=== PATIENT | female | born 1935 | race Caucasian/White ===

== ENCOUNTER 2017-07-22 14:57 | Emergency (ER) | payer OTHER ==
--- NOTE | 2017-07-22 15:19 | EDPHY ---
H & P Stated Complaint: L foot swelling, pain, redness x 5 days. On keflex Time Seen by Provider: 07/22/17 15:16 HPI/ROS: CHIEF COMPLAINT: Left foot pain HISTORY OF PRESENT ILLNESS: This is an 82-year-old female who presents complaining of left foot pain that has been present for the past 6 days. She reports no trauma. She was seen in her primary care physician's office last Thursday, 5 days ago, and started on Keflex twice daily. She has taken this antibiotic faithfully but had no improvement. She reports pain, redness, and swelling along the medial aspect and the bottom of her left foot. She has had some skin sloughing. There is a similar process taking place on the right foot , and similar medial location; but her right foot is not painful. Of note, she was seen here approximately 2 years ago complaining of pain and redness of the medial aspect of her right foot and was treated with clindamycin at that time. She does not recall that visit. She has had no recent illnesses. She denies cough or cold, chest pain, difficulty breathing, abdominal pain, vomiting, diarrhea, constipation, and dysuria. REVIEW OF SYSTEMS: A ten point review of systems was performed and is negative with the exception of the items mentioned in the HPI. Past medical history: 1. Hypothyroid 2. Hyperlipidemia 3. ? Cardiac arrhythmia--she takes Brilinta and metoprolol, cannot report why Social history: She uses a walker or cane to get about. She lives independently. She drives herself. She does not use tobacco products. General Appearance: Alert. Vital signs reviewed. Blood pressure 160/83. Eyes: Pupils equal and round, no conjunctival injection, no discharge. Anicteric. ENT, Mouth: Mucous membranes are moist, no oropharyngeal erythema or edema. Neck: No lymphadenopathy. Respiratory: Lungs are clear to auscultation; no wheezes, rales, or rhonchi. Cardiovascular: Regular rate and rhythm; no murmur, rub, or gallop. Gastrointestinal: Abdomen is soft and nontender, no masses or organomegaly. Skin: Warm and dry. Extremities: Left foot with pitting edema across the dorsum. There is warmth and erythema of the medial aspect of the left foot extending onto the arch of the foot. There is a 3 cm x 3 cm area where the superficial skin has sloughed off. No purpura, petechiae, both lie, or nodules. Right foot has some erythema and 2 circular areas of skin sloughing (nickel-sized) medially but no swelling, warmth, or tenderness. No splinter hemorrhages. Pulses: 2+ dorsalis pedis pulses bilaterally. Neurological: Alert and oriented. Moving all four extremities easily and equally. Full active 5/5 plantar and dorsiflexion at both ankles. Wiggles toes vigorously and easily. Sensation intact to light touch over both lower extremities. Psychiatric: Normal affect. - Personal History Current Tetanus Diphtheria and Acellular Pertussis (TDAP): Yes Tetanus Vaccine Date: within 10 years - Medical/Surgical History Hx Asthma: No Hx Chronic Respiratory Disease: No Hx Diabetes: No Hx Cardiac Disease: No Hx Renal Disease: No Hx Cirrhosis: No Hx Alcoholism: No Hx HIV/AIDS: No Hx Splenectomy or Spleen Trauma: No Other PMH: EYE SURG, BACK SURG X5, HYPOTHYROID, HIGH CHOL, UTI - Social History Smoking Status: Former smoker Constitutional: Initial Vital Signs Temperature (C) 37 C 07/22/17 15:09 Heart Rate 80 07/22/17 15:09 Respiratory Rate 16 07/22/17 15:09 Blood Pressure 160/83 H 07/22/17 15:09 O2 Sat (%) 93 07/22/17 15:09 O2 Delivery Mode Room Air Allergies/Adverse Reactions: erythromycin base [Erythromycin Base] Allergy (Verified 07/22/17 15:14) PT reports GI issues Macrolide Antibiotics Allergy (Verified 07/22/17 15:14) Pt reports GI issues Penicillins Allergy (Verified 07/22/17 15:14) Pt reports hives Sulfa (Sulfonamide Antibiotics) Allergy (Verified 07/22/17 15:14) PT unsure of reaction tetracycline [Tetracycline] Allergy (Verified 07/22/17 15:14) Pt reports GI issues Home Medications: Medication Instructions Recorded Aspercreme 07/22/17 Atorvastatin Calcium 07/22/17 Brilinta 07/22/17 Clindamycin HCl [Clindamycin] 450 mg PO QID #28 mg 07/22/17 Donepezil HCl 07/22/17 Keflex 07/22/17 Metoprolol Tartrate 07/22/17 Premarin 07/22/17 Remeron 07/22/17 Synthroid 07/22/17 Vitamin B12 07/22/17 Vitamin D3 07/22/17 Medical Decision Making - Diagnostics Imaging Results: Imaging Impressions Foot X-Ray 07/22/17 15:50 Impression: 1. Soft tissue swelling about the metatarsals suggestive of cellulitis. No underlying osseous abnormality seen. 2. Moderate degenerative changes first MTP joint. 3. Moderate calcaneal spurs. ED Course/Re-evaluation: A [place] O female with persistent left foot pain, swelling, erythema, and mild warmth. She also has some skin sloughing. She has been taking keflex for 6 days with no improvement. She takes an occasional Vicodin for pain. She has been elevating her feet as much as possible. I am not convinced that this is a cellulitis, but if so, it has not responded to the Keflex. I am switching her to clindamycin 450 mg p.o. Four times daily. I do not think that this is a deeper infection such as osteomyelitis or necrotizing fasciitis. I have reviewed an x-ray of her foot. She is not in general ill. Concerned about the possibility of a vasculitis. I am recommending that she see her primary care physician within the next couple of days and an appointment has been scheduled for her for the day after tomorrow. We reviewed the danger signs that should prompt her to return sooner. She is noted to be hypertensive in the emergency department. Her blood pressure will be rechecked in 2 days at her primary care physician's office. Departure - Departure Disposition: Home, Routine, Self-Care Clinical Impression: Acute pain of left foot Cellulitis Qualifiers: Site of cellulitis: extremity Site of cellulitis of extremity: lower extremity Laterality: left Qualified Code(s): L03.116 - Cellulitis of left lower limb Condition: Good Instructions: Cellulitis (ED) Additional Instructions: You have an appointment with Dr. Vinicius Marino, in Dr. Gamboa's office, on this July 23 at 1:45 PM. Make sure that he knows that you were seen in the emergency department today. I am changing your antibiotic to Clindamycin. You should take this medicine four times daily. Continue to elevate your foot as much as possible. It is okay to use your hydrocodone/acetominophen if needed for pain. Remember that you should be careful if you take this medicine--it contains opiate pain medicine and might make you sleepy, confused, or off balance. No driving when you take it. Do not take additional tylenol if you take this medicine. Return if you are worse--fever, severe pain, more swelling, any new or concerning symptoms. Referrals: Pauly Gamboa MD [Primary Care Provider] - As per Instructions Prescriptions: Clindamycin HCl [Clindamycin] 450 mg PO QID #28 mg
[2017-07-22 16:28] VITALS: BP 155/79
== END 2017-07-22 16:26 | disposition home or self-care (01) ==
LOC: CED 14:57
DX: L03.116 Cellulitis of left lower limb (principal); Z87.891 Personal history of nicotine dependence
CPT/HCPCS: 73630-PO

== ENCOUNTER 2017-07-30 13:12 | Emergency (ER) | payer OTHER ==
[2017-07-30 13:33] VITALS: BP 141/82
--- NOTE | 2017-07-30 13:38 | EDPHY ---
H & P Stated Complaint: PT. states left foot with increased erythema and pain since 07/22 Time Seen by Provider: 07/30/17 13:18 HPI/ROS: CHIEF COMPLAINT: Left foot pain HISTORY OF PRESENT ILLNESS: Patient is an 82-year-old female who has been bothered by chronic left foot pain for the last 2-3 weeks. She was initially seen by her primary and diagnosed with cellulitis and started on Keflex. After 5 days this did not seem to help so she came here to the ER. She was seen by Dr. Noguera and an x-ray was performed and she was switched to clindamycin. She has now been taking clindamycin for about 8 days and states that she has not had improvement. She does not have diabetes. She has not had a fever. Symptoms have not significantly worsened but is simply continued. REVIEW OF SYSTEMS: Constitutional: denies: chills, fever, recent illness, recent injury EENTM: denies: blurred vision, double vision, nose congestion Respiratory: denies: cough, shortness of breath Cardiac: denies: chest pain, irregular heart rate, lightheadedness, palpitations Gastrointestinal/Abdominal: denies: abdominal pain, diarrhea, nausea, vomiting, blood streaked stools Genitourinary: denies: dysuria, frequency, hematuria, pain Musculoskeletal: denies: joint pain, muscle pain Skin: See HPI Neurological: denies: headache, numbness, paresthesia, tingling, dizziness, weakness Hematologic/Lymphatic: denies: blood clots, easy bleeding, easy bruising Immunologic/allergic: denies: HIV/AIDS, transplant EXAM: GENERAL: Well-appearing, well-nourished and in no acute distress. HEAD: Atraumatic, normocephalic. EYES: Pupils equal round and reactive to light, extraocular movements intact, sclera anicteric, conjunctiva are normal. ENT: TMs normal, nares patent, oropharynx clear without exudates. Moist mucous membranes. NECK: Normal range of motion, supple without lymphadenopathy or JVD. LUNGS: Breath sounds clear to auscultation bilaterally and equal. No wheezes rales or rhonchi. HEART: Regular rate and rhythm without murmurs, rubs or gallops. ABDOMEN: Soft, nontender, normoactive bowel sounds. No guarding, no rebound. No masses appreciated. BACK: No CVA tenderness, no spinal tenderness, step-offs or deformities EXTREMITIES: Normal range of motion, no pitting or edema. No clubbing or cyanosis. NEUROLOGICAL: Cranial nerves II through XII grossly intact. Normal speech, normal gait. 5/5 strength, normal movement in all extremities, normal sensation PSYCH: Normal mood, normal affect. SKIN: Erythema to the medial aspect of her left and right foot worse on the left. Scaling and cracking of both feet. Slight warmth to both feet, left worse than right. Source: Patient Exam Limitations: No limitations - Personal History Current Tetanus Diphtheria and Acellular Pertussis (TDAP): Unsure Tetanus Vaccine Date: within 10 years - Medical/Surgical History Hx Asthma: No Hx Chronic Respiratory Disease: No Hx Diabetes: No Hx Cardiac Disease: No Hx Renal Disease: No Hx Cirrhosis: No Hx Alcoholism: No Hx HIV/AIDS: No Hx Splenectomy or Spleen Trauma: No Other PMH: EYE SURG, BACK SURG X5, HYPOTHYROID, HIGH CHOL, - Family History Significant Family History: No pertinent family hx - Social History Smoking Status: Former smoker Alcohol Use: Sober Drug Use: None Constitutional: Initial Vital Signs Temperature (C) 36.3 C 07/30/17 13:24 Heart Rate 84 07/30/17 13:24 Respiratory Rate 16 07/30/17 13:24 Blood Pressure 141/82 H 07/30/17 13:24 O2 Sat (%) 91 L 07/30/17 13:24 O2 Delivery Mode Room Air Allergies/Adverse Reactions: erythromycin base [Erythromycin Base] Allergy (Verified 07/30/17 13:20) PT reports GI issues Macrolide Antibiotics Allergy (Verified 07/30/17 13:20) Pt reports GI issues Penicillins Allergy (Verified 07/30/17 13:20) Pt reports hives Sulfa (Sulfonamide Antibiotics) Allergy (Verified 07/30/17 13:20) PT unsure of reaction tetracycline [Tetracycline] Allergy (Verified 07/30/17 13:20) Pt reports GI issues Home Medications: Medication Instructions Recorded Aspercreme 07/22/17 Atorvastatin Calcium 07/22/17 Brilinta 07/22/17 Clindamycin HCl [Clindamycin] 450 mg PO QID #28 mg 07/22/17 Donepezil HCl 07/22/17 Metoprolol Tartrate 05/02/18 Premarin 07/22/17 Remeron 07/22/17 Synthroid 07/22/17 Vitamin B12 07/22/17 Vitamin D3 07/22/17 Medical Decision Making ED Course/Re-evaluation: Patient is now been on 2 different antibiotics without improvement. She has an appointment with Dr. Bullock from Infectious Disease tomorrow. I feel that this is appropriate encouraged her to keep this appointment. I would prefer not to switch her antibiotics at this point. I am suspicious that this is not an infection but rather vascular insufficiency versus fungal or other etiology causing her bilateral foot erythema and pain although left side is worse than the right and there do seem to be some cracks and dry skin that her irritated possibly secondarily infected. I will encourage Vaseline and follow up with Dr. Bullock tomorrow. She is not toxic-appearing. She is afebrile. I do not think blood cultures are x-rays would be beneficial this time. Differential Diagnosis: Partial list of the Differential diagnosis considered include but were not limited to; cellulitis, abscess, vascular insufficiency, vasculitis, and although unlikely based on the history and physical exam, I also considered diabetic wound, osteomyelitis, abscess, fasciitis. I discussed these differential diagnoses and the plan with the patient as well as the usual and expected course. The patient understands that the diagnosis is provisional and that in medicine we are not always correct and that further workup is often warranted. Usual and customary warnings were given. All of the patient's questions were answered. The patient was instructed to return to the emergency department should the symptoms at all worsen or return, otherwise to followup with the physician as we discussed. Departure - Departure Disposition: Home, Routine, Self-Care Clinical Impression: Bilateral foot pain Condition: Fair Instructions: Acute Rash (ED) Referrals: Pauly Gamboa MD [Primary Care Provider] - As per Instructions Gabriel Bullock MD [Medical Doctor] - 1 day without fail
== END 2017-07-30 13:49 | disposition home or self-care (01) ==
LOC: CED 13:12
DX: M79.672 Pain in left foot (principal); M79.671 Pain in right foot; Z87.891 Personal history of nicotine dependence

== ENCOUNTER → 2018-06-15 | Outpatient (CLI) | payer OTHER | LOC: CIMAGING 15:18 | PROVIDERS: ATTEND Nurse Practitioner | DX: R60.9 Edema, unspecified (principal); I25.10 Atherosclerotic heart disease of native coronary artery without angina pectoris | CPT/HCPCS: 93971-PO ==